=== PATIENT | male | born 1985 | race African-American/Black ===

== ENCOUNTER 2016-11-30 18:48 | Inpatient (IN) | payer SELFPAY ==
[2016-11-30 20:01] LABS: Red Blood Cell (RBC) Count 6.43 mill/uL (4.70-6.10); White Blood Cell (WBC) Count 24.8 thou/uL (4.8-10.8)
[2016-11-30] MEDS ORDERED: Midazolam HCl 2 mg/2 ml Vial ONE (20:14)
[2016-11-30] MEDS ORDERED: Fentanyl 250 MCG/5 ML VIAL ONE (20:14)
[2016-11-30 20:15] LABS: Band 1 % (5-11); Neutrophil 94 % (42-75)
[2016-11-30] MEDS ORDERED: Bupivacaine 0.25% HCL 30 ML VIAL ONE (20:15)
[2016-11-30] MEDS ORDERED: Lidocaine 1% w/Epinephrine 1:200K 30 ML VIAL ONE (20:23)
[2016-11-30] MEDS ORDERED: Lidocaine 1% PF 5 ML VIAL ONE (21:05)
[2016-11-30] MEDS ORDERED: Propofol 200 MG/20 ML VIAL ONE (21:05)
[2016-11-30] MEDS ORDERED: Dexamethasone 20 MG/5 ML VIAL ONE (21:05)
[2016-11-30] MEDS ORDERED: PHENYLEPHRINE-NS 100 MCG/ML 10 ML SYRINGE ONE (21:05)
[2016-11-30] MEDS ORDERED: Succinylcholine Chloride 20 MG/ML 10 ml SYRINGE FS ONE (21:05)
[2016-11-30] MEDS ORDERED: Ondansetron HCl/PF 4 MG/2 ML Vial ONE (21:05)
[2016-11-30] MEDS ORDERED: Piperacillin/Tazobactam 3.375 GM VIAL ONE (21:05)
[2016-11-30] MEDS ORDERED: Fluconazole In NaCl,Iso-Osm 400 MG in Premix Bag 1 BAG IVPB SCH ×2 (21:45)
[2016-11-30] MEDS ORDERED: D5 1/2 NS w/20 mEq KCL 1,000 ML ONE (23:19)
[2016-11-30] MEDS ORDERED: Dextrose 5% in Water 1,000 ML IV PRN (23:33)
[2016-11-30] MEDS ORDERED: Mag-Al 1200 mg/1200 mg/30 ML UDCUP PO PRN (23:33)
[2016-11-30] MEDS ORDERED: Calcium Carbonate 500 MG ChewTAB PO PRN (23:33)
[2016-11-30] MEDS ORDERED: Ondansetron HCl/PF 4 MG/2 ML Vial IVP PRN (23:33)
[2016-11-30] MEDS ORDERED: Promethazine HCl 25 MG/ML VIAL IM PRN (23:33)
[2016-11-30] MEDS ORDERED: Dextrose 50% Abboject 50 ML SYRINGE SLOW IVP PRN (23:33)
[2016-11-30 23:46] VITALS: BMI 28.2
[2016-12-01] MEDS: D5 1/2 NS w/20 mEq KCL 1,000 ML IV SCH ×3 (00:24→20:35)
[2016-12-01] MEDS: Acetaminophen 1,000 MG in Premix Bag 1 BAG IVPB SCH ×5 (00:24→23:47)
--- NOTE | 2016-12-01 02:02 | HP ---
DATE OF ADMISSION: 11/30/2016 CHIEF COMPLAINT: Acute abdominal pain, free air in the abdomen. HISTORY OF PRESENT ILLNESS: The patient is a 31-year-old black male from [place]. He gives a 2-d ay history of progressive right-sided abdominal pain with multiple episodes of vomiting. He present ed to the emergency room in [place] today. Laboratory studies were essentially unremarkable inclu ding a normal white blood cell count. CT scan, however, was obtained revealing a significant amount of free air in the abdomen and it was difficult to discern an etiology. There appeared to be poten tially some thickening of the distal aspect of the stomach and potentially some inflammation of the transverse colon. There was a small amount of fluid within the pelvis and the right side of the abd omen. PAST MEDICAL HISTORY: Essentially unremarkable. PAST SURGICAL HISTORY: None. MEDICATIONS: None. ALLERGIES: None. PERSONAL AND SOCIAL HISTORY: He smokes about a 1/2 pack per day. He drinks alcohol rarely and andreia es any illegal drug use. He lives by himself in [place]. He does not work. He tells me his gran dmother takes care of him. REVIEW OF SYSTEMS: Otherwise, unremarkable. FAMILY HISTORY: Noncontributory. PHYSICAL EXAMINATION: VITAL SIGNS: He is afebrile with normal vital signs currently. GENERAL: He is a well-developed, well-nourished, pleasant black male resting in bed, in no acute di stress. He is alert and oriented x3. HEAD, EYES, EARS, NOSE, AND THROAT: Unremarkable. NECK: Supple without mass or tenderness. LUNGS: Clear to auscultation throughout. CARDIAC: Regular rate and rhythm without murmur. ABDOMEN: Nondistended. It is diffusely tender but much worse on the right with obvious guarding an d peritoneal signs. Bowel sounds are not audible currently. EXTREMITIES: Unremarkable. ASSESSMENT: The patient with acute abdominal pain and pneumoperitoneum, etiology is uncertain. PLAN: Laparoscopy, possible laparotomy with repair as indicated. I have discussed the operation in detail with the patient as well as potential risks. He understands and agrees to proceed with surg huseyin at this time.
[2016-12-01] MEDS: Piperacillin/Tazobactam 3.375 GM in Sodium Chloride 0.9% 100 ML IVPB SCH ×4 (03:35→20:24)
[2016-12-01 05:57] LABS: ALT (SGPT) 21 U/L (8-55); AST (SGOT) 16 U/L (5-34); Alkaline Phosphatase 55 U/L (40-150); Anion Gap 10 mmol/L (10-20); BUN (Urea Nitrogen) 9 mg/dL (8.9-20.6); Bilirubin, Total 1.5 mg/dL (0.2-1.2); Calc. Creatinine Clearance 108 mL/min (70-130); Calcium 8.8 mg/dL (7.8-10.44); Carbon Dioxide 29 mmol/L (22-29); Chloride 100 mmol/L (98-107); Estimated GFR-MDRD 82; Protein, Total 6.4 g/dL (6.0-8.3)
[2016-12-01 06:05] LABS: Band 1 % (5-11); Hematocrit 48.8 % (42.0-52.0); Mean Platelet Volume 7.9 fL (7.4-10.4); Neutrophil 90 % (42-75); Red Blood Cell (RBC) Count 5.55 mill/uL (4.70-6.10); White Blood Cell (WBC) Count 27.3 thou/uL (4.8-10.8)
[2016-12-01] MEDS ORDERED: FLU VACC QS2017-18 36 mo. & older 0.5 ML SYRINGE IM ONE (09:00)
[2016-12-01] MEDS: Pantoprazole 40 MG VIAL IVP SCH ×2 (09:00→20:24)
[2016-12-01] MEDS: Famotidine/PF 20 mg/2ml Vial SLOW IVP SCH ×2 (09:00→20:24)
[2016-12-01] MEDS: Enoxaparin Sodium 40 MG/0.4 ML SYRINGE SC SCH (09:17)
[2016-12-01] MEDS: Fluconazole In NaCl,Iso-Osm 200 MG in Premix Bag 1 BAG IVPB SCH ×2 (10:12)
[2016-12-01] MEDS ORDERED: Promethazine HCl 25 MG in Sodium Chloride 0.9% 50 ML IVPB SCH (10:15)
[2016-12-02] MEDS: Piperacillin/Tazobactam 3.375 GM in Sodium Chloride 0.9% 100 ML IVPB SCH ×2 (03:26→09:01)
[2016-12-02] MEDS: D5 1/2 NS w/20 mEq KCL 1,000 ML IV SCH ×3 (03:26→16:54)
[2016-12-02] MEDS: Famotidine 20 MG TAB PO SCH ×2 (09:00→20:20)
[2016-12-02] MEDS: Enoxaparin Sodium 40 MG/0.4 ML SYRINGE SC SCH (09:01)
[2016-12-02] MEDS: Pantoprazole 40 MG VIAL IVP SCH ×2 (09:01→20:20)
[2016-12-02] MEDS: Fluconazole In NaCl,Iso-Osm 200 MG in Premix Bag 1 BAG IVPB SCH ×2 (10:04)
[2016-12-02] MEDS ORDERED: HYDROcodone/Acetaminophen 5/325 mg Tablet PO PRN ×2 (14:58→14:59)
[2016-12-03] MEDS: D5 1/2 NS w/20 mEq KCL 1,000 ML IV SCH ×2 (01:41→10:49)
[2016-12-03 06:54] LABS: Mean Platelet Volume 9.4 fL (7.4-10.4); Neutrophil 72 % (42-75); White Blood Cell (WBC) Count 11.2 thou/uL (4.8-10.8)
[2016-12-03] MEDS: Enoxaparin Sodium 40 MG/0.4 ML SYRINGE SC SCH (08:42)
[2016-12-03] MEDS: Pantoprazole 40 MG VIAL IVP SCH (08:43)
[2016-12-03] MEDS ORDERED: Fluconazole 100 MG TAB PO SCH (09:00)
[2016-12-03] MEDS: Famotidine 20 MG TAB PO SCH (09:45)
[2016-12-03 12:41] VITALS: BP 119/75; TEMP 98.2
--- NOTE | 2016-12-03 22:19 | OP ---
DATE OF PROCEDURE: 11/30/2016 PREOPERATIVE DIAGNOSIS: Perforated peptic ulcer. POSTOPERATIVE DIAGNOSIS: Perforated peptic ulcer with apparent pyloric channel perforation. OPERATION PERFORMED: Exploratory laparoscopy with laparoscopic repair of perforated pyloric channel ulcer with omental patch closure. SURGEON: Dr. Ross Navarrete. ANESTHESIA: General endotracheal. INDICATIONS: The patient is a 31-year-old black male, a smoker. He presented to the hospital in [facility] complaining of abdominal pain. CT scan revealed significant pneumoperitoneum as well as kari e fluid within the abdomen. He was transferred to this facility and is taken to the operating room at this time for urgent exploration. OPERATIVE PROCEDURE IN DETAIL: Informed consent was obtained. The patient was taken to the operati ng room where general endotracheal anesthesia was obtained with the patient in the supine position. The abdomen was prepped with ChloraPrep and draped in sterile fashion. Local anesthetic was infilt rated and a 5 mm infraumbilical incision was created through which a Veress needle was passed into t he peritoneal cavity and pneumoperitoneum established using carbon dioxide up to a pressure of 15 mm Hg. A 5 mm trocar port was passed through this same incision. Laparoscopic camera was passed throu gh this port. There was recognized to be free bilious fluid within the abdomen. There was inflammatory change in the upper abdomen surrounding the stomach and the liver. I placed an additional 5 mm port in the le ft upper abdomen and used this to elevate the liver. I was able to visualize a perforated ulcer wha t appeared to be the pyloric channel. This was a relatively small ulcer measuring about 5 mm in radha meter. I then placed 2 more ports using a 5 mm port in the right lateral abdomen as well as a 5 mm port in the right paramedian location and replaced the left upper abdominal port with an 8 mm port. A triangle retractor was placed through the lateral port and used to elevate the liver and the gallb ladder off of the stomach. I then repaired the perforation with 2 interrupted sutures of 3-0 Vicryl . I imbricated the repair with a final suture of 3-0 Vicryl. I then obtained a portion of the omen mary kay coming off the right side of the transverse colon that easily laid over the perforation and secu red this in place with three additional sutures of 3-0 Vicryl. I then copiously irrigated the abdom inal contents using 3 liters of irrigant. All irrigant was aspirated. A #[address] fer was obtained and brought out through the right lateral port site where it was secured using a 3- 0 nylon suture. The drain was positioned in the subhepatic space extending across the stomach into the left upper abdomen. All ports and instruments were removed under direct vision. Pneumoperitone um was carefully evacuated. Quarter percent Marcaine with epinephrine was infiltrated in each port site and skin edges approximated with 4-0 Monocryl subcuticular suture. Dermabond was placed hyperbaric technologist ally. There were no complications. Patient tolerated the procedure well and was taken to recovery room in stable condition.
== END 2016-12-03 14:21 | disposition home or self-care (01) | DRG 328 ==
LOC: ERS 18:48 → SURG A 19:37
PROVIDERS: ADMIT Specialist; ATTEND Specialist
PROC: 0DQ78ZZ Repair Stomach, Pylorus, Via Natural or Artificial Opening Endoscopic (ICD-10-PCS; principal; 2016-11-30)
DX: K25.5 Chronic or unspecified gastric ulcer with perforation (principal); F17.210 Nicotine dependence, cigarettes, uncomplicated
CPT/HCPCS: 36415; 36416; 80053; 83690; 85025; 86677; 87070; 87102; 87205; 87206; 99285; A4216; C9113; J0131; J1100; J1170; J1450; J1650; J2001; J2250; J2405; J2543; J2550; J2704; J3010; J7050; S0020; S0028